=== PATIENT | female | born 1955 | race Caucasian/White ===

== ENCOUNTER 2020-11-20 05:25 | Inpatient (IN) | payer MEDICARE, OTHER ==
[~2020-11-20 05:25] MED LIST: IBUPROFEN200 M1 PO; PERCOCET 5-3251 EACH PO; ROSUVASTATIN CA10 MG PO; SYNTHROID100 MCG PO; VITAMIN B-1250 MC1 SC; ZOLOFT50 MG PO
[2020-11-20] MEDS ORDERED: PERCOCET 5-3251 EACH PO (07:45)
[2020-11-20] MEDS ORDERED: PHENERGAN25 M1 PO (08:01)
--- NOTE | 2020-11-20 10:01 | NUR ---
PT REPORTS INDEPENDENT WITH ADL'S LIVES WITH GAYE ARVIZU AT HOME; PLEASE ADVISE OF DISCHARGE NEEDS; I SPOKE TO THE ORTHO NURSE AMILCAR-SHE DOES NOT THINK THAT SHE WILL NEED ANYYHING. WE WILL FOLLOW FOR ANY NEEDS THAT ARISE
--- NOTE | 2020-11-20 12:56 | NUR ---
PT LIVES WITH SPOUSE; SHE DOES NOT HAVE ANY EQUIPMENT AND DOES NOT FEEL SHE WILL NEED ANYTING
[2020-11-21 08:21] LABS: BASOPHIL 0.2 % (0-2); EOSINOPHIL 0.1 % (0-7); HCT 36.9 % (37.0-47.0); LYMPHOCYTE 18.8 % (15-48); MCH 31.8 pg (25.0-31.0); MCHC 32.5 g/dL (32.0-36.0); MCV 97.9 fL (78.0-100.0); MONOCYTE 8.8 % (0-12); MPV 8.5 fL (6.0-9.5); NEUTROPHIL 71.6 % (41-80); NRBC 0; PLT 271 K/uL (150-400); RBC 3.77 M/uL (4.20-5.40); RDW 13.4 % (11.5-14.0); WBC 12.9 K/uL (4.0-10.5)
[2020-11-21] MEDS ORDERED: FEOSOL325 MG PO (09:14)
[2020-11-21] MEDS ORDERED: ASPIRIN CHEWABL81 MG PO (09:14)
[2020-11-21 09:22] LABS: BUN/CREAT RATIO (CALC) 25.4 RATIO; CREATININE 0.67 mg/dL (0.51-0.95); POTASSIUM 4.1 mmol/L (3.5-5.1)
== END 2020-11-21 11:54 | disposition home or self-care (01) | DRG 483 ==
LOC: FSDC 05:25 → FMS 07:44
PROVIDERS: ADMIT Orthopaedic Surgery
PROC: 0LS30ZZ Reposition Right Upper Arm Tendon, Open Approach (ICD-10-PCS; 2020-11-20)
PROC: 0RRJ00Z Replacement of Right Shoulder Joint with Reverse Ball and Socket Synthetic Substitute, Open Approach (ICD-10-PCS; principal; 2020-11-20 07:00)
DX: M75.101 Unspecified rotator cuff tear or rupture of right shoulder, not specified as traumatic (principal); M19.011 Primary osteoarthritis, right shoulder; M79.609 Pain in unspecified limb; M85.812 Other specified disorders of bone density and structure, left shoulder; E78.5 Hyperlipidemia, unspecified; T68.XXXA Hypothermia, initial encounter; Z20.822 Contact with and (suspected) exposure to COVID-19; E03.9 Hypothyroidism, unspecified; Z79.899 Other long term (current) drug therapy; Z79.82 Long term (current) use of aspirin
CPT/HCPCS: 36415; 73020; 80048; 85025; 86850; 86900; 86901; 94010; 94760; 94762; 97162; 97166; 97530-GP; 97535; C1713; C1776; J0171; J0697; J0735; J1100; J1885; J2250; J2270; J2370; J2405; J2704; J2710; J2795; J3010; J7120

== ENCOUNTER 2021-10-12 18:10 | Emergency (ER) | payer MEDICARE, OTHER ==
[~2021-10-12 18:10] MED LIST changes: +ASPIRIN CHEWABL81 MG PO; +FEOSOL325 MG PO; +PHENERGAN25 M1 PO
[2021-10-12] MEDS ORDERED: PERCOCET 5-3251 EACH PO (20:12)
[2021-10-14] MEDS ORDERED: VITAMIN D3125 MC1 PO (14:58)
[2021-10-14] MEDS ORDERED: TERBINAFINE HC250 MG PO (14:59)
[2021-10-14] MEDS ORDERED: TYLENOL ARTHRI650 MG PO (15:00)
== END 2021-10-12 21:13 | disposition home or self-care (01) ==
LOC: FER 18:10
DX: S52.91XA Unspecified fracture of right forearm, initial encounter for closed fracture (principal); S01.81XA Laceration without foreign body of other part of head, initial encounter; S80.211A Abrasion, right knee, initial encounter; W18.30XA Fall on same level, unspecified, initial encounter; Y92.009 Unspecified place in unspecified non-institutional (private) residence as the place of occurrence of the external cause
CPT/HCPCS: 70450; 72125; 73090; 73110; 73130

== ENCOUNTER → 2021-10-16 | Day surgery (SDC) | payer MEDICARE, OTHER ==
[~2021-10-16] VITALS: Ht 162.6 cm; Wt 63.5 kg
[~2021-10-16] MED LIST changes: +TERBINAFINE HC250 MG PO; +TYLENOL ARTHRI650 MG PO; +VITAMIN D3125 MC1 PO
[2021-10-16 07:08] LABS: HCT 37.3 % (37.0-47.0); HGB 12.2 g/dl (12.5-16.0); MCH 32.1 pg (25.0-31.0); MCHC 32.7 g/dL (32.0-36.0); MCV 98.2 fL (78.0-100.0); MPV 8.6 fL (6.0-9.5); RBC 3.8 M/uL (4.20-5.40); RDW 13.1 % (11.5-14.0); WBC 6.5 K/uL (4.0-10.5)
[2021-10-16 07:45] LABS: ALBUMIN 3.2 g/dL (3.4-5.0); BILIRUBIN - TOTAL 0.3 mg/dL (0.2-1.0); BUN/CREAT RATIO (CALC) 29.9 RATIO; CREATININE 0.67 mg/dL (0.51-0.95); GLOBULIN (CALCULATION) 2.9 g/dL; POTASSIUM 3.7 mmol/L (3.5-5.1); TOTAL PROTEIN 6.1 g/dL (6.4-8.2)
== END | disposition home or self-care (01) ==
LOC: FAS 06:06
PROVIDERS: Orthopaedic Surgery
DX: S52.501A Unspecified fracture of the lower end of right radius, initial encounter for closed fracture (principal); X58.XXXA Exposure to other specified factors, initial encounter
CPT/HCPCS: 36415; 71045; 73100; 76000; 80053; 93005; C1713; C1769; J0690; J0735; J1100; J1885; J2250; J2405; J2704; J2795; J7120